=== PATIENT | female | born 1980 | race Caucasian/White ===

== ENCOUNTER → 2018-12-25 | Outpatient (CLI) | payer OTHER ==
--- NOTE | 2018-12-28 08:37 | MM ---
Reason for exam: screening (asymptomatic). Baseline mammogram. History: Family history of breast cancer in mother at age 62, breast cancer in maternal grandmother at age 40, and breast cancer in cousin at age 46. Physical Findings: Nurse Summary: 1cm movable mass in the left breast, 2cm at each movable lump in the right breast (nurse rm). MG 3D Screening Mammo W/Cad Bilateral CC and MLO view(s) were taken. The breast tissue is heterogeneously dense. This may lower the sensitivity of mammography. There is no discrete abnormality. These results were verbally communicated with the patient and result sheet given to the patient on 12/25/18. ASSESSMENT: Incomplete: need additional imaging evaluation, BI-RAD 0 RECOMMENDATION: Ultrasound of both breasts.
--- NOTE | 2018-12-28 08:41 | USB ---
Reason for exam: additional evaluation requested from abnormal screening. History: Family history of breast cancer in mother at age 62, breast cancer in maternal grandmother at age 40, and breast cancer in cousin at age 46. US Breast Workup [place] Right complete breast ultrasound includes all four quadrants, the retroareolar region and axilla. Finding demonstrates a 0.7 x 0.6 x 0.3cm mixed lesion at 5 o'clock. Left complete breast ultrasound includes all four quadrants, the retroareolar region and axilla. Finding demonstrates a 1.2 x 0.6 x 0.5cm solid, hypoechoic lesion at 2 o'clock for which a biopsy is recommended, a 0.3 x 0.3 x 0.2cm cystic lesion at 4 o'clock, a 0.6 x 0.4 x 0.3cm cystic lesion at 6 o'clock. These results were verbally communicated with the patient and result sheet given to the patient on 12/25/18. ASSESSMENT: Suspicious, BI-RAD 4 RECOMMENDATION: Ultrasound core biopsy of the left breast. Called with mammographic findings and has scheduled an appointment for the patient for 01/11/19 at 2:[address] Hendrix. PRELIMINARY REPORT CALLED AND FAXED TO DR. HENDRIX ON 12/28/18..
== END | disposition home or self-care (01) ==
LOC: RADMAMWWP 10:57
PROVIDERS: ATTEND Family Medicine
DX: Z12.31 Encounter for screening mammogram for malignant neoplasm of breast (principal)
CPT/HCPCS: 77063; 77067

== ENCOUNTER → 2021-05-23 | Outpatient (CLI) | payer OTHER ==
--- NOTE | 2021-05-23 10:36 | CT ---
EXAMINATION TYPE: CT abdomen w con DATE OF EXAM: 05/23/2021 COMPARISON: None HISTORY: Epigastric pain CT DLP: 365 mGycm Automated exposure control for dose reduction was used. TECHNIQUE: Helical acquisition of images was performed from the lung bases through the top of iliac crest to include entire abdomen. CONTRAST: Performed with Oral Contrast and with IV Contrast, patient injected with 100 mL of Isovue 300. FINDINGS: Thickening along the stomach wall may be due to lack of distention LUNG BASES: No significant abnormality is appreciated. LIVER/GB: No significant abnormality is appreciated. PANCREAS: No significant abnormality is seen. SPLEEN: No significant abnormality is seen. ADRENALS: No significant abnormality is seen. KIDNEYS: There is an extrarenal pelvis on the right greater than left, pelvic caliectasis is present on the right. BOWEL: No significant abnormality is seen. LYMPH NODES: No significant abnormality is appreciated. OSSEOUS STRUCTURES: No significant abnormality is seen. FREE AIR: No Free Air visible ASCITES: None visible. RETROPERITONEAL ADENOPATHY: No Retroperitoneal Adenopathy visible. OTHER: IMPRESSION: THERE IS PELVIC CALIECTASIS INVOLVING THE RIGHT KIDNEY. ADDITIONAL FINDINGS ABOVE.
== END | disposition home or self-care (01) ==
LOC: RADCTMAIN 08:18
PROVIDERS: ATTEND Surgery
DX: N28.89 Other specified disorders of kidney and ureter (principal)
CPT/HCPCS: 74160; Q9967